=== PATIENT | male | born 1980 | race Two or more races ===

== ENCOUNTER 2020-08-12 17:29 | Emergency (ER) | payer OTHER ==
[2020-08-12 17:36] VITALS: TEMP 98; BMI 45.0
[2020-08-12 18:48] LABS: BASO % 2.3 % (0-2.0); EOS % 2.3 % (0-4.5); HEMATOCRIT 40.1 % (35.4-49); HEMOGLOBIN 13.6 GM/dL (11.7-16.9); LYMPH % 35.9 % (8-40); MCH 28.9 pg (25.7-33.7); MCHC 33.8 g/dl (32.0-35.9); MEAN CELL VOLUME 85.5 fl (80-96); MEAN PLT VOLUME 9.5 fl (7.5-11.1); MONO % 3.7 % (3.8-10.2); NEUT % 55.8 % (42.8-82.8); PLATELET COUNT 293 K/MM3 (134-434); RBC 4.69 M/mm3 (4.00-5.60); RDW 13.8 % (11.9-15.9); WHITE BLOOD COUNT 15.3 K/mm3 (4.0-10.0)
[2020-08-12 19:03] LABS: EPI CELLS 6 /uL (0-25.1); HYALINE CASTS 0 /uL (0-3.1); URINE APPEARANCE CLEAR; URINE BACTERIA 5 /uL (0-1359); URINE BILIRUBIN NEGATIVE (NEGATIVE); URINE COLOR YELLOW; URINE GLUCOSE (UA) 3+ (NEGATIVE); URINE KETONE TRACE (NEGATIVE); URINE LEUK ESTERASE NEGATIVE (NEGATIVE); URINE NITRITE NEGATIVE (NEGATIVE); URINE PROTEIN 1+ (NEGATIVE); URINE RBC 10 /uL (0-23.9); URINE UROBILINOGEN 0.2 mg/dL (0.2-1.0); URINE WBC 11 /uL (0-25.8)
[2020-08-12 19:06] LABS: CHLORIDE 99 mmol/L (98-107); SODIUM 132 mmol/L (136-145)
[2020-08-12 19:09] LABS: ALBUMIN 3.9 g/dl (3.4-5.0); ANION GAP 8 MMOL/L (8-16); BLOOD UREA NITROGEN 14.8 mg/dL (7-18); CALCIUM 10.3 mg/dL (8.5-10.1); CO2 25 mmol/L (21-32); LIPASE 136 U/L (73-393)
[2020-08-12 19:12] LABS: SGOT/AST 80 U/L (15-37); SGPT/ALT 107 U/L (13-61)
[2020-08-12 19:13] LABS: BILIRUBIN,TOTAL 0.3 mg/dL (0.2-1); GLUCOSE,RANDOM 446 mg/dL (74-106); TOT PROT 8.8 g/dl (6.4-8.2)
[2020-08-12 19:14] LABS: ALK PHOS 119 U/L (45-117)
[2020-08-12] MEDS ORDERED: SODIUM CHLORIDE 1,000 ML IV STA (19:22)
[2020-08-12] MEDS ORDERED: INSULIN REGULAR HUMAN 100 UNITS/ML *VIAL IVPUSH ONE (19:23)
[2020-08-12 21:29] VITALS: BP 119/82; PULSE 98
== END 2020-08-12 21:35 | disposition home or self-care (01) ==
LOC: JER 17:29
PROC: 3E013VG Introduction of Insulin into Subcutaneous Tissue, Percutaneous Approach (ICD-10-PCS; principal; 2020-08-12)
PROC: 3E0337Z Introduction of Electrolytic and Water Balance Substance into Peripheral Vein, Percutaneous Approach (ICD-10-PCS; 2020-08-12)
DX: E11.9 Type 2 diabetes mellitus without complications (principal); R10.9 Unspecified abdominal pain; R11.2 Nausea with vomiting, unspecified
CPT/HCPCS: 36415; 76705-TC; 80053; 81003; 82010; 82962; 83690; 85025; 87086; 87491; 87591; 99284-25

== ENCOUNTER 2021-02-19 22:41 | Emergency (ER) | payer OTHER, BC ==
[2021-02-19 23:00] VITALS: BP 125/82; PULSE 96; TEMP 98.6; BMI 39.0
[2021-02-20] MEDS ORDERED: diphenhydrAMINE HCL 25 MG CAPSULE (FP) PO ONE ×2 (01:15→01:17)
[2021-02-20] MEDS ORDERED: LORATADINE 10 MG TABLET PO ONE (01:17)
[2021-02-20] MEDS ORDERED: CLINDAMYCIN HCL 300 MG CAPSULE PO ONE (01:18)
[2021-02-20] MEDS ORDERED: CLINDAMYCIN HCL 150 MG CAPSULE (FP) ONE (01:25)
[2021-02-20] MEDS ORDERED: LORATADINE 10 MG TABLET ONE (01:25)
== END 2021-02-20 02:23 | disposition home or self-care (01) ==
LOC: JER 22:41
DX: L50.9 Urticaria, unspecified (principal)
CPT/HCPCS: 99283-25

== ENCOUNTER 2021-02-22 06:54 | Emergency (ER) | payer OTHER, BC ==
[2021-02-22 07:45] VITALS: TEMP 97.9; BMI 39.0
[2021-02-22] MEDS ORDERED: methylPREDNISolone NA SUCC 125 MG/2 ML VIAL IVPB ONE (08:17)
[2021-02-22] MEDS ORDERED: SODIUM CHLORIDE 0.9% 500 ML INFUS.BAG IV ONE (08:26)
[2021-02-22] MEDS ORDERED: methylPREDNISolone NA SUCC 125 MG/2 ML VIAL ONE (08:26)
[2021-02-22 09:46] LABS: BASO % 0.2 % (0-2.0); EOS % 0.2 % (0-4.5); HEMATOCRIT 45.1 % (35.4-49); HEMOGLOBIN 15.4 GM/dL (11.7-16.9); LYMPH % 18.6 % (8-40); MCH 28.1 pg (25.7-33.7); MCHC 34.1 g/dl (32.0-35.9); MEAN CELL VOLUME 82.4 fl (80-96); MEAN PLT VOLUME 9.2 fl (7.5-11.1); MONO % 3.9 % (3.8-10.2); NEUT % 77.1 % (42.8-82.8); PLATELET COUNT 319 10^3/uL (134-434); RBC 5.48 M/mm3 (4.00-5.60); RDW 13.9 % (11.9-15.9); WHITE BLOOD COUNT 15.3 K/mm3 (4.0-10.0)
[2021-02-22 09:53] LABS: CALCIUM 9.4 mg/dL (8.5-10.1)
[2021-02-22 09:54] LABS: ALBUMIN 3.4 g/dl (3.4-5.0)
[2021-02-22 09:55] LABS: BLOOD UREA NITROGEN 18.3 mg/dL (7-18)
[2021-02-22 09:57] LABS: CREATININE 1.3 mg/dL (0.55-1.3)
[2021-02-22 09:58] LABS: TOT PROT 7.7 g/dl (6.4-8.2)
[2021-02-22 09:59] LABS: BILIRUBIN,TOTAL 0.7 mg/dL (0.2-1)
[2021-02-22] MEDS ORDERED: IBUPROFEN 400 MG TABLET (FP) PO ONE ×2 (11:50→11:55)
[2021-02-22 12:20] VITALS: BP 118/83; PULSE 88
== END 2021-02-22 12:21 | disposition home or self-care (01) ==
LOC: JER 06:54
PROC: 3E033GC Introduction of Other Therapeutic Substance into Peripheral Vein, Percutaneous Approach (ICD-10-PCS; principal; 2021-02-22)
PROC: 3E033GC Introduction of Other Therapeutic Substance into Peripheral Vein, Percutaneous Approach (ICD-10-PCS; 2021-02-22)
DX: L50.9 Urticaria, unspecified (principal)
CPT/HCPCS: 36415; 80053; 85025; 99284-25; C9803; U0003; U0005

== ENCOUNTER 2021-05-18 21:10 | Emergency (ER) | payer BC, OTHER ==
[2021-05-18 21:19] VITALS: TEMP 98.2; BMI 38.3
[2021-05-18] MEDS ORDERED: IBUPROFEN 600 MG TABLET (FP) PO ONE (23:32)
[2021-05-19 00:46] LABS: BASO % 0.8 % (0-2.0); EOS % 1.6 % (0-4.5); HEMATOCRIT 42.1 % (35.4-49); HEMOGLOBIN 14.3 GM/dL (11.7-16.9); LYMPH % 34.9 % (8-40); MCH 28.6 pg (25.7-33.7); MCHC 33.9 g/dl (32.0-35.9); MEAN CELL VOLUME 84.2 fl (80-96); MEAN PLT VOLUME 8.7 fl (7.5-11.1); MONO % 3.9 % (3.8-10.2); NEUT % 58.8 % (42.8-82.8); PLATELET COUNT 236 10^3/uL (134-434); RDW 14.3 % (11.9-15.9); WHITE BLOOD COUNT 15.3 K/mm3 (4.0-10.0)
[2021-05-19] MEDS ORDERED: IBUPROFEN 600 MG TABLET (FP) PO ONE (00:46)
[2021-05-19 01:15] LABS: BLOOD UREA NITROGEN 12.2 mg/dL (7-18); CALCIUM 9.4 mg/dL (8.5-10.1)
[2021-05-19 01:19] LABS: CREATININE 0.9 mg/dL (0.55-1.3)
[2021-05-19 01:21] LABS: BILIRUBIN,TOTAL 0.3 mg/dL (0.2-1); TOT PROT 8.2 g/dl (6.4-8.2)
[2021-05-19 03:46] VITALS: BP 136/82; PULSE 78
== END 2021-05-19 03:50 | disposition home or self-care (01) ==
LOC: JER 21:10
DX: R07.9 Chest pain, unspecified (principal)
CPT/HCPCS: 36415; 71046-TC-FY; 80053; 84484; 85025; 93005; 93010; 99285-25

== ENCOUNTER 2024-08-30 16:52 | Emergency (ER) | payer OTHER, BC ==
[2024-08-30 17:06] VITALS: BP 133/76; PULSE 77; RESP 18; TEMP 98.3; BMI 47.4
[2024-08-30] MEDS ORDERED: ACETAMINOPHEN 325 MG TABLET (FP) ONE (18:05)
[2024-08-30] MEDS: ACETAMINOPHEN 500 MG TABLET (FP) PO ONE (18:15)
== END 2024-08-30 20:27 | disposition home or self-care (01) ==
LOC: JER 16:52
DX: S40.212A Abrasion of left shoulder, initial encounter (principal); M25.511 Pain in right shoulder; W01.0XXA Fall on same level from slipping, tripping and stumbling without subsequent striking against object, initial encounter; Y99.0 Civilian activity done for income or pay
CPT/HCPCS: 73030-TC-RT-FY; 99283-25